=== PATIENT | female | born 1980 | race Asian ===

== ENCOUNTER 2021-11-14 08:00 | Outpatient (CLI) | payer OTHER ==
--- NOTE | 2021-11-14 15:08 | XRAY Report ---
PROCEDURE: Wrist 3 View RT INDICATIONS: WRIST CYST TECHNIQUE: 3 views of the wrist were acquired. COMPARISON: None FINDINGS: Bones: No fractures or dislocations. No suspicious bony lesions. Soft tissues: No suspicious soft tissue calcifications. Swelling dorsally without soft tissue calci fication, at site of BB marker. IMPRESSION: No acute osseous abnormality. Slight soft tissue convexity at the site of BB marker on the dorsal luis e of the wrist, possibly a ganglion cyst. There is no calcification. Correlate with ultrasound if nee ded. Reviewed by: Last Kendall MD on 11/14/2021 3:07 PM PDT Approved by: Last Kendall MD on 11/14/2021 3:07 PM PDT Station ID: [id number]
== END 2021-11-14 23:59 | disposition home or self-care (01) ==
LOC: DI.WOS 08:00
PROVIDERS: ATTEND Physician Assistant
DX: M25.531 Pain in right wrist (principal)